=== PATIENT | female | born 1950 | race Caucasian/White ===

== ENCOUNTER 2020-08-12 02:09 | Emergency (ER) | payer MEDICARE, OTHER ==
[~2020-08-12] VITALS: Ht 153.9 cm; Wt 49.0 kg
[~2020-08-12 02:09] MED LIST: LEVAQUIN500 MG PO; MINOCYCLINE HCL50 MG PO
[2020-08-12 03:04] LABS: BASOPHILS # (AUTO) 0.1 (0.0-0.1); BASOPHILS % 0.8 % (0.0-1.0); EOSINOPHILS % 0.3 % (0.0-6.0); HEMATOCRIT 37.1 % (34.2-44.1); HEMOGLOBIN 12.4 g/dL (12.0-16.0); LYMPHOCYTES # (AUTO) 1.8 (1.0-3.2); LYMPHOCYTES % 19.6 % (18.0-39.1); MEAN CORPUSCULAR HEMOGLOBIN 33.4 pg (28-32); MEAN CORPUSCULAR HGB CONC 33.4 g/dL (31-35); MONOCYTES # (AUTO) 0.7 (0.2-0.8); MONOCYTES % 8.1 % (4.4-11.3); NEUTROPHILS # (AUTO) 6.4 (2.1-6.9); NEUTROPHILS % 70.9 % (38.7-80.0); PLATELET COUNT 338 x10e3/uL (140-360); RED BLOOD COUNT 3.71 x10e6/uL (3.6-5.1); RED CELL DISTRIBUTION WIDTH 12.5 % (11.7-14.4)
[2020-08-12 03:19] LABS: ALANINE AMINOTRANSFERASE 19 IU/L (0-55); ALBUMIN 4.2 g/dL (3.5-5.0); ALBUMIN/GLOBULIN RATIO 1.1 (0.8-2.0); ALKALINE PHOSPHATASE 118 IU/L (40-150); ANION GAP 19.9 mmol/L (8-16); BLOOD UREA NITROGEN 28 mg/dL (7-26); BUN/CREATININE RATIO 34 (6-25); CALCIUM 9.4 mg/dL (8.4-10.2); CARBON DIOXIDE 22 mmol/L (22-29); CHLORIDE 103 mmol/L (98-107); CREATININE, SERUM 0.83 mg/dL (0.57-1.11); EST GLOMERULAR FILTRATION RATE > 60 ML/MIN (60-); GLUCOSE 81 mg/dL (74-118); POTASSIUM 3.9 mmol/L (3.5-5.1); SODIUM 141 mmol/L (136-145)
[2020-08-12 04:20] VITALS: BP 134/86
== END 2020-08-12 04:20 | disposition home or self-care (01) ==
LOC: ER 02:15
DX: L03.116 Cellulitis of left lower limb (principal); S91.302A Unspecified open wound, left foot, initial encounter; R60.9 Edema, unspecified
CPT/HCPCS: 36415; 71045; 80053; 83605; 83880; 85025; 87040; 93005; 99284

== ENCOUNTER 2021-05-12 04:37 | Inpatient (IN) | payer MEDICARE, OTHER ==
[~2021-05-12] VITALS: Ht 167.6 cm; Wt 49.0 kg
[2021-05-12] MEDS ORDERED: SODIUM CHLORIDE 0.9% 1000ML 1,000 ML IV STA ×2 (05:23→08:14)
[2021-05-12 05:29] LABS: BASOPHILS # (AUTO) 0.1 (0.0-0.1); BASOPHILS % 0.7 % (0.0-1.0); EOSINOPHILS # (AUTO) 0.3 (0.0-0.4); EOSINOPHILS % 2.3 % (0.0-6.0); HEMATOCRIT 25.6 % (34.2-44.1); LYMPHOCYTES # (AUTO) 0.8 (1.0-3.2); LYMPHOCYTES % 6.7 % (18.0-39.1); MEAN CORPUSCULAR HEMOGLOBIN 33.3 pg (28-32); MEAN CORPUSCULAR HGB CONC 31.3 g/dL (31-35); MEAN CORPUSCULAR VOLUME 106.7 fL (81-99); MONOCYTES # (AUTO) 1.1 (0.2-0.8); MONOCYTES % 8.7 % (4.4-11.3); NEUTROPHILS # (AUTO) 9.9 (2.1-6.9); NEUTROPHILS % 81.1 % (38.7-80.0); PLATELET COUNT 470 x10e3/uL (140-360); RED CELL DISTRIBUTION WIDTH 13.3 % (11.7-14.4)
[2021-05-12 05:37] LABS: INR 0.96; PROTHROMBIN TIME 13.5 seconds (11.9-14.5)
[2021-05-12 05:38] LABS: PARTIAL THROMBOPLASTIN TIME 28.1 seconds (23.8-35.5)
[2021-05-12 05:40] LABS: ALBUMIN 2.9 g/dL (3.5-5.0); ALBUMIN/GLOBULIN RATIO 0.9 (0.8-2.0); ANION GAP 9.2 mmol/L (8-16); CALCIUM 9.1 mg/dL (8.4-10.2); CREATININE, SERUM 0.7 mg/dL (0.57-1.11); POTASSIUM 4.2 mmol/L (3.5-5.1)
[2021-05-12] MEDS ORDERED: PIPERACILLIN/TAZOBACTAM 3.375 GM in SODIUM CHLORIDE 0.9% 50ML 50 ML IV STA (05:45)
[2021-05-12 05:51] LABS: CREATINE KINASE MB 10.6 ng/mL (0-5.0)
[2021-05-12 08:39] LABS: CLARITY,URINE CLEAR (CLEAR); COLOR,URINE YELLOW (YELLOW); LEUKOCYTE ESTERASE ,URINE NEGATIVE (NEGATIVE); NITRITE,URINE NEGATIVE (NEGATIVE); PROTEIN,URINE DIPSTICK TRACE (NEGATIVE)
[2021-05-12 08:40] LABS: KETONES,URINE NEGATIVE (NEGATIVE)
[2021-05-12 08:51] LABS: BACTERIA,URINE RARE /HPF; EPITHELIAL CELLS,URINE FEW /LPF; RBC,URINE 0-5 /HPF (0-5); WBC,URINE (MAN) 0-5 /HPF (0-5)
[2021-05-12] MEDS ORDERED: ACETAMINOPHEN 325 MG TAB PO PRN (09:00)
[2021-05-12] MEDS ORDERED: IBUPROFEN 600 MG TAB PO PRN (09:00)
[2021-05-12] MEDS ORDERED: ONDANSETRON HCL INJ 2MG/ML 2ML 2 MG/ML VIAL IV PRN (09:00)
[2021-05-12] MEDS ORDERED: FAMOTIDINE 20 MG/2 ML VIAL IV SCH (09:00)
[2021-05-12] MEDS ORDERED: Vancomycin IV 1 GM in SODIUM CHLORIDE 0.9% 250ML 250 ML IV ONE (09:00)
[2021-05-12] MEDS: SODIUM CHLORIDE 0.9% 1000ML 1,000 ML IV SCH ×3 (09:37→23:19)
[2021-05-12 11:55] VITALS: BP 108/69
[2021-05-12] MEDS: PIPERACILLIN/TAZOBACTAM 3.375 GM in SODIUM CHLORIDE 0.9% 50ML 50 ML IV SCH ×3 (13:00→23:44)
[2021-05-12 14:06] LABS: CREATINE KINASE MB 9.8 ng/mL (0-5.0)
[2021-05-12 15:53] VITALS: BP 98/51
[2021-05-12 20:00] VITALS: BP 101/50
[2021-05-12 20:22] LABS: CREATINE KINASE MB 7.4 ng/mL (0-5.0)
[2021-05-13] VITALS (11 sets, daily range): BP systolic 89–135; BP diastolic 50–69
[2021-05-13 00:26] LABS: CREATINE KINASE MB 5.6 ng/mL (0-5.0)
[2021-05-13 04:42] LABS: BASOPHILS # (AUTO) 0.1 (0.0-0.1); BASOPHILS % 0.7 % (0.0-1.0); EOSINOPHILS # (AUTO) 0.3 (0.0-0.4); EOSINOPHILS % 3.2 % (0.0-6.0); LYMPHOCYTES % 10.5 % (18.0-39.1); MEAN CORPUSCULAR HEMOGLOBIN 33.3 pg (28-32); MEAN CORPUSCULAR HGB CONC 31.1 g/dL (31-35); MEAN CORPUSCULAR VOLUME 107.2 fL (81-99); MONOCYTES # (AUTO) 0.7 (0.2-0.8); MONOCYTES % 7.3 % (4.4-11.3); NEUTROPHILS # (AUTO) 7.4 (2.1-6.9); NEUTROPHILS % 77.6 % (38.7-80.0); PLATELET COUNT 360 x10e3/uL (140-360); RED BLOOD COUNT 2.07 x10e6/uL (3.6-5.1); RED CELL DISTRIBUTION WIDTH 13.8 % (11.7-14.4)
[2021-05-13 04:48] LABS: HEMATOCRIT 22.2 % (34.2-44.1); HEMOGLOBIN 6.9 g/dL (12.0-16.0)
[2021-05-13 05:07] LABS: ALBUMIN/GLOBULIN RATIO 0.7 (0.8-2.0); ANION GAP 6.8 mmol/L (8-16); CREATININE, SERUM 0.5 mg/dL (0.57-1.11); MAGNESIUM 1.8 MG/DL (1.3-2.1); POTASSIUM 3.8 mmol/L (3.5-5.1)
[2021-05-13 05:34] LABS: BASOPHILS # (AUTO) 0.1 (0.0-0.1); BASOPHILS % 0.6 % (0.0-1.0); EOSINOPHILS # (AUTO) 0.3 (0.0-0.4); EOSINOPHILS % 2.9 % (0.0-6.0); HEMATOCRIT 23.5 % (34.2-44.1); HEMOGLOBIN 7.4 g/dL (12.0-16.0); LYMPHOCYTES % 10.4 % (18.0-39.1); MEAN CORPUSCULAR HEMOGLOBIN 33.2 pg (28-32); MEAN CORPUSCULAR HGB CONC 31.5 g/dL (31-35); MEAN CORPUSCULAR VOLUME 105.4 fL (81-99); MONOCYTES # (AUTO) 0.7 (0.2-0.8); NEUTROPHILS # (AUTO) 7.9 (2.1-6.9); NEUTROPHILS % 78.4 % (38.7-80.0); RED BLOOD COUNT 2.23 x10e6/uL (3.6-5.1); RED CELL DISTRIBUTION WIDTH 13.7 % (11.7-14.4)
[2021-05-13 05:36] LABS: PLATELET COUNT 395 x10e3/uL (140-360)
[2021-05-13] MEDS: SODIUM CHLORIDE 0.9% 1000ML 1,000 ML IV SCH ×4 (05:37→22:46)
[2021-05-13] MEDS: PIPERACILLIN/TAZOBACTAM 3.375 GM in SODIUM CHLORIDE 0.9% 50ML 50 ML IV SCH ×3 (05:37→18:23)
[2021-05-13 08:23] LABS: EOSINOPHILS % (MANUAL) 4 % (0-7); LYMPHOCYTES % (MANUAL) 7 % (19-48); MONOCYTES % (MANUAL) 4 % (3.4-9.0); NEUTROPHILS % (MANUAL) 85 % (40-74); NUCLEATED RED BLOOD CELLS 1
[2021-05-13 08:24] LABS: PLATELET ESTIMATE ADEQUATE; PLATELET MORPHOLOGY COMMENT NORMAL; RBC MORPHOLOGY COMMENT NORMAL
[2021-05-13] MEDS: HYDROMORPHONE 1MG/1ML INJ IV PRN (18:00)
[2021-05-14] VITALS (7 sets, daily range): BP systolic 102–112; BP diastolic 57–72
[2021-05-14] MEDS: PIPERACILLIN/TAZOBACTAM 3.375 GM in SODIUM CHLORIDE 0.9% 50ML 50 ML IV SCH ×5 (05:53→18:28)
[2021-05-14] MEDS: SODIUM CHLORIDE 0.9% 1000ML 1,000 ML IV SCH ×3 (07:40→20:38)
[2021-05-14] MEDS: COLLAGENASE 5 GM TUBE TOP SCH (09:00)
[2021-05-14] MEDS: HYDROMORPHONE 1MG/1ML INJ IV PRN ×3 (13:00→15:50)
[2021-05-15] VITALS (7 sets, daily range): BP systolic 101–120; BP diastolic 65–75
[2021-05-15] MEDS: SODIUM CHLORIDE 0.9% 1000ML 1,000 ML IV SCH ×4 (06:00→17:12)
[2021-05-15] MEDS: PIPERACILLIN/TAZOBACTAM 3.375 GM in SODIUM CHLORIDE 0.9% 50ML 50 ML IV SCH ×5 (06:00→17:12)
[2021-05-15] MEDS: COLLAGENASE 5 GM TUBE TOP SCH (09:00)
[2021-05-15] MEDS: HYDROMORPHONE 1MG/1ML INJ IV PRN ×2 (14:15→19:21)
[2021-05-16] VITALS: BP 119/65
[2021-05-16 03:10] VITALS: BP 119/65
[2021-05-16] MEDS: PIPERACILLIN/TAZOBACTAM 3.375 GM in SODIUM CHLORIDE 0.9% 50ML 50 ML IV SCH ×5 (05:25→17:51)
[2021-05-16 06:09] LABS: BASOPHILS % 0.4 % (0.0-1.0); EOSINOPHILS # (AUTO) 0.3 (0.0-0.4); EOSINOPHILS % 3.8 % (0.0-6.0); HEMATOCRIT 24.5 % (34.2-44.1); HEMOGLOBIN 7.7 g/dL (12.0-16.0); LYMPHOCYTES # (AUTO) 0.8 (1.0-3.2); LYMPHOCYTES % 9.1 % (18.0-39.1); MEAN CORPUSCULAR HEMOGLOBIN 33.2 pg (28-32); MEAN CORPUSCULAR HGB CONC 31.4 g/dL (31-35); MEAN CORPUSCULAR VOLUME 105.6 fL (81-99); MONOCYTES # (AUTO) 0.6 (0.2-0.8); MONOCYTES % 6.5 % (4.4-11.3); NEUTROPHILS # (AUTO) 7.1 (2.1-6.9); NEUTROPHILS % 79.2 % (38.7-80.0); PLATELET COUNT 513 x10e3/uL (140-360); RED BLOOD COUNT 2.32 x10e6/uL (3.6-5.1); RED CELL DISTRIBUTION WIDTH 14.1 % (11.7-14.4)
[2021-05-16 06:27] LABS: ANION GAP 10.5 mmol/L (8-16); CALCIUM 8.2 mg/dL (8.4-10.2); CREATININE, SERUM 0.49 mg/dL (0.57-1.11); POTASSIUM 3.5 mmol/L (3.5-5.1)
[2021-05-16 07:57] VITALS: BP 106/73
[2021-05-16] MEDS: SODIUM CHLORIDE 0.9% 1000ML 1,000 ML IV SCH ×3 (09:00→20:31)
[2021-05-16] MEDS: HYDROMORPHONE 1MG/1ML INJ IV PRN (11:25)
[2021-05-16 11:55] VITALS: BP 119/74
[2021-05-16] MEDS ORDERED: ONDANSETRON HCL 4 MG ORAL DISINTEGRATING TAB PO PRN (12:45)
[2021-05-16 16:22] VITALS: BP 98/57
[2021-05-16] MEDS: COLLAGENASE 5 GM TUBE TOP SCH ×2 (16:40→16:43)
[2021-05-16 20:00] VITALS: BP 112/70
[2021-05-17] VITALS (7 sets, daily range): BP systolic 108–120; BP diastolic 69–80
[2021-05-17] MEDS: SODIUM CHLORIDE 0.9% 1000ML 1,000 ML IV SCH ×3 (05:16→17:17)
[2021-05-17] MEDS: PIPERACILLIN/TAZOBACTAM 3.375 GM in SODIUM CHLORIDE 0.9% 50ML 50 ML IV SCH ×5 (05:16→17:18)
[2021-05-17] MEDS: COLLAGENASE 5 GM TUBE TOP SCH (09:00)
[2021-05-17] MEDS: HYDROMORPHONE 1MG/1ML INJ IV PRN (15:24)
[2021-05-24] MEDS ORDERED: ALENDRONATE SODIUM 70 MG TAB PO SCH (06:30)
== END 2021-05-17 20:55 | DRG 603 ==
LOC: ER 05:25 → ERHOLD 09:00 → MED/SURG2 11:16
DX: L03.115 Cellulitis of right lower limb (principal); Z68.1 Body mass index [BMI] 19.9 or less, adult; E44.0 Moderate protein-calorie malnutrition; T79.6XXA Traumatic ischemia of muscle, initial encounter; W19.XXXA Unspecified fall, initial encounter; I87.2 Venous insufficiency (chronic) (peripheral); D63.8 Anemia in other chronic diseases classified elsewhere; R53.81 Other malaise; Z91.011 Allergy to milk products; Z91.010 Allergy to peanuts; Z91.013 Allergy to seafood; Z20.822 Contact with and (suspected) exposure to COVID-19; M85.80 Other specified disorders of bone density and structure, unspecified site; D64.9 Anemia, unspecified; L89.220 Pressure ulcer of left hip, unstageable; Z74.01 Bed confinement status
CPT/HCPCS: 36415; 51700; 70450; 71045; 72125; 80048; 80053; 80061; 81001; 82550; 82553; 82948; 83605; 83735; 84484; 85025; 85610; 85730; 87040; 87086; 93005; 93971; 94799; 96361; 97139; 99251; 99284; J1170; J2543; J3370; J7030; J7050; U0002

== ENCOUNTER → 2021-06-26 | Outpatient (CLI) | payer MEDICARE, OTHER | LOC: CT 12:02 | PROVIDERS: ATTEND Specialist | DX: S82.122A Displaced fracture of lateral condyle of left tibia, initial encounter for closed fracture (principal); S72.451A Displaced supracondylar fracture without intracondylar extension of lower end of right femur, initial encounter for closed fracture ==

== ENCOUNTER 2021-12-27 18:28 | Emergency (ER) | payer MEDICARE, OTHER ==
[~2021-12-27] VITALS: Ht 153.9 cm; Wt 49.0 kg
== END 2021-12-27 20:30 | disposition home or self-care (01) ==
LOC: ER 18:31
DX: L03.116 Cellulitis of left lower limb (principal)

== ENCOUNTER → 2022-10-24 | Outpatient (CLI) | payer MEDICARE, OTHER | LOC: DX 15:54 | PROVIDERS: ATTEND Family Medicine | DX: M81.0 Age-related osteoporosis without current pathological fracture (principal); M25.561 Pain in right knee; M25.661 Stiffness of right knee, not elsewhere classified; M25.361 Other instability, right knee | CPT/HCPCS: 77080 ==